=== PATIENT | male | born 1985 ===

== ENCOUNTER 2016-07-20 18:30 | Observation (INO) | payer SELFPAY ==
[~2016-07-20] VITALS: Ht 175.3 cm; Wt 75.2 kg
--- NOTE | ~2016-07-20 | CON ---
PATIENT'S NAME: RAMESH CHAPMAN [facility] AGE: 30 Y [address] ROOM: [id number] [place], [place] [address] LOCATION: GPCU ADMIT DATE: 07/20/2016 Consultation DISCHARGE DATE: 07/21/2016 FAMILY PHYSICIAN: Rene Gan MD ATTENDING PHYSICIAN: Warner Ibanez DATE OF CONSULTATION: 07/21/2016 REFERRING PHYSICIAN: Elia Chowdhury MD The patient was seen in neurologic consultation on 07/21/2016. HISTORY OF PRESENT ILLNESS: Mr. Chapman is a 30-year-old male patient with no significant prior medical history. 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 At the same time, he had developed some severe allergies in his travels going between climate zones. He started to take Benadryl 25 mg tablet and he felt better, thus he continued to take at least 5 25 mg tablets. Early in the morning yesterday, he was driving with his from their home in [place] and they were driving towards [place]. On the road while he was driving, he suddenly started to feel pins and needle sensations in his legs and into his torso, that radiated into his arms. He felt as though he could not drive further, thus he got out of the car and his switched place with him, she started to drive instead. She noted that he started to stutter in his speech and suddenly he had an episode either passing out or more likely a generalized tonic-clonic seizure activity. She was very close to the emergency room in [place] at that time and got him there within 4 minutes. The patient by that time had stopped having any seizures and was not given any medications in the emergency room. He was observed and he was possibly confused for a short period of time; however, the patient remembers arriving in the emergency room or early in the course. Apparently, he was discharged after he was doing well, only to come back after being with his in [facility] where he started to develop similar symptoms. He then returned to the emergency room for evaluation. This time, he did not have any generalized seizure. At the hospital in [place], they called us for further workup, especially to get an MRI of the brain as the patient did have a normal CAT scan. It is important to rule out some intracranial mass that an MRI would likely find. Again, the patient denies any illicit drug use. He did have a urine toxicology positive for methadone, though he absolutely denies using this medication and may have been a cross-reactivity with some medication even the Benadryl is possible. PRIOR MEDICAL HISTORY: None. SOCIAL HISTORY: PATIENT'S NAME: RAMESH CHAPMAN [facility] AGE: 30 Y [address] ROOM: [id number] [place], [place] [address] LOCATION: GPCU ADMIT DATE: 07/20/2016 Consultation DISCHARGE DATE: 07/21/2016 FAMILY PHYSICIAN: Rene Gan MD ATTENDING PHYSICIAN: Warner Ibanez He is a smoker. He has 3 children. He is . He is often on the road multiple times during the week. He can often be driving and be without sleep for 24 hours, but at this time, he was without sleep for 48 hours. He also took the sedating medication of Benadryl at the time. FAMILY HISTORY: Noncontributory though he does have apparently a daughter with a seizure disorder. MEDICATIONS: Currently include amoxicillin, this was started here in the hospital for likely sinusitis PAST SURGICAL HISTORY: No prior surgical history. REVIEW OF SYSTEMS: Negative review of systems in multiple systems tested. The patient is without focal deficits. He is communicating normally. PHYSICAL EXAMINATION: VITAL SIGNS: Pulse of 89 and regular, respiration rate 18, blood pressure 106/58, and temperature 97.9. NEURO: Cranial nerves 2 through 12 was intact. His motor exam revealed 5/5 power in the upper and lower extremities though he had a bit of pain in his left shoulder and had a bit of limitation in abduction of that shoulder with pain. There are no obvious sensory deficits on exam. Reflexes symmetric at +2 at the biceps, triceps, brachioradialis, patellar, and ankle jerk reflexes. Plantar reflex is downgoing. The patient's gait is normal and narrow based. Negative Romberg's. IMPRESSION: It is clear that Mr. Chapman had a generalized seizure. In discussions with him, I told him that the combination of the Benadryl was added to the fact that he was up for 48 hours without sleep, put certainly a lower seizure threshold. 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 Certainly, he should not mix any sedating medications that essentially acting that likely could lead to a generalized seizure. Absolutely avoid any illicit drug use and only smoke cigarettes, he has plans to possibly discontinue cigarette smoking. I told the patient that because this is the first-time seizure, again we would not treat it, but I do recommend that he not drive for 3 months though this is his means of income, PATIENT'S NAME: RAMESH CHAPMAN [facility] AGE: 30 Y [address] ROOM: [id number] [place] [id number] [facility] ADMIT DATE: 07/20/2016 Consultation DISCHARGE DATE: 07/21/2016 FAMILY PHYSICIAN: Rene Gan MD ATTENDING PHYSICIAN: Warner Ibanez it is very important that he be cleared of any knowledge that he had any new events because he can be a danger to himself and to others on the road. I do feel confident that the patient will abide by my recommendations as he seems to have fairly good insight and his does want to enforce and make sure that his hours are limited on his work. I would like the patient to follow up, however, in our office in approximately 3 months just to get an update as to how he is doing. I want him to report to us any new activity that would be suggestive of any prodromal seizure activity or certainly any generalized seizure activity. For then, he would have to be put on an antiseizure medication. MD BELLA PAYTON/sigifredo /[id number] d: 07/21/16 2139 t: 08/07/16 1322, CONSULTATION REPORT
--- NOTE | ~2016-07-20 | DS ---
PATIENT'S NAME: RAMESH ANGLIN [facility] AGE: 30 Y [address] ROOM: [address] [place], [place] [address] LOCATION: GPCU ADMIT DATE: 07/20/2016 Discharge Summary DISCHARGE DATE: 07/21/2016 FAMILY PHYSICIAN: Rene Gan MD ATTENDING PHYSICIAN: Warner Ibanez PRINCIPAL DIAGNOSIS: Seizures. SECONDARY DIAGNOSIS: Left shoulder pain. HOSPITAL COURSE: A 30-year-old gentleman with no significant past medical history, presented to the emergency department with seizures. He had 2 episodes of seizures. Initial evaluation including CAT scan as well as MRI did not reveal any intracranial abnormality. His lab work was within normal limits. Neurology consultation was obtained. Neurology viewed that this is secondary to lack of sleep and using Benadryl. He was dismissed home on 07/21/2016. Neurology did not recommend any antiepileptic medications at this point. He was advised not to drive for 3 months as well as no swimming for 3 months. He needs to follow up with Neurology in 3 months. He did complain of left shoulder pain. We did an x-ray which did not reveal any acute abnormality. This was followed by the CAT scan which did reveal some joint effusion. I recommended to follow up with PCP in 3 days if the pain does not improve. DISCHARGE MEDICATIONS: None. ACTIVITY: No driving for 3 months. DIET: As tolerated. MD ORESTES FRANKEL/sigifredo /[id number] d: 07/22/16 0114 t: 07/29/16 1948, DISCHARGE SUMMARY
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
[2016-07-20] MEDS ORDERED: BENADRYL25 MG PO (19:38)
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
[2016-07-21 14:14] LABS: BASOPHIL % 0.3 %; EOSINOPHIL # 0.1 K/uL (0.0-0.5); EOSINOPHIL % 1.4 %; HEMOGLOBIN 12.8 g/dL (12.0-17.0); IMMATURE GRANULOCYTE % 0.3 %; LYMPHOCYTE # 2.1 K/uL (0.8-4.0); LYMPHOCYTE % 26.3 %; MCH 30.5 pg (27.0-34.0); MCHC 33.7 gm/dL (32.0-36.5); MCV 90.7 fl (83.0-98.0); MONOCYTE # 0.5 K/uL (0.0-1.0); MONOCYTE % 6.5 %; MPV 9.5 fl (9.4-12.4); NEUTROPHIL # (ANC) 5.2 K/uL (1.4-9.0); NEUTROPHIL % 65.2 %; NRBC % 0 /100WBC (0-0.00); PLATELET COUNT 293 K/uL (150-450); RBC 4.19 M/uL (4.00-6.00); RDW-CV 13.9 % (11.9-14.6); WBC 7.9 K/uL (4.0-11.0)
[2016-07-21 14:36] LABS: ALBUMIN 3.2 gm/dL (3.5-5.0); ALK PHOS 75 IU/L (33-138); ALT 36 IU/L (12-78); ANION GAP 13.1 (10.0-19.0); AST 17 IU/L (10-40); BLOOD UREA NITROGEN 10 mg/dL (6-24); CALCIUM 7.9 mg/dL (8.5-10.5); CHLORIDE 111 mMol/L (96-110); CO2 24 mMol/L (22-32); CPK 94 IU/L (35-332); ESTIMATED GFR (MDRD EQUATION) > 60; POTASSIUM 4.1 mMol/L (3.7-5.1); SODIUM 144 mMol/L (135-145); TOTAL BILIRUBIN 0.3 mg/dL (0.0-1.5); TOTAL PROTEIN 6.3 g/dL (6.0-8.4)
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
[2016-07-21] MEDS ORDERED: TYLENOL325 MG PO (18:50)
--- NOTE | 2016-07-21 19:14 | NUR ---
Coming on to shift MD rounded and discharged patient to home. Discharge medications addressed along with instructions of no driving or swimming for 3 months. 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 in the room for education and states that she will let his boss know about his situation. VSS on RA. PIV to R)hand discontinued. Patient transported via WC to private vehicle by [employer]. No questions or concerns voiced from patient or prior to leaving [facility].
== END 2016-07-21 19:17 | disposition disaster alternative care site (69) ==
LOC: EDSTATUS 18:30 → GPCU 18:30
PROVIDERS: Internal Medicine; ADMIT Internal Medicine
DX: G40.409 Other generalized epilepsy and epileptic syndromes, not intractable, without status epilepticus (principal); M25.512 Pain in left shoulder; F17.210 Nicotine dependence, cigarettes, uncomplicated
CPT/HCPCS: G0378